=== PATIENT | male | born 1990 | race African-American/Black ===

== ENCOUNTER 2017-01-26 23:18 | Emergency (ER) | payer MEDICAID ==
[~2017-01-26] VITALS: Ht 172.7 cm; Wt 77.1 kg
[2017-01-26 23:27] VITALS: BP_SYST 134
[2017-01-27 01:19] LABS: BASOPHILS # (AUTO) 0.1 K/uL (0.0-0.2); BASOPHILS % (AUTO) 0.5 % (0.0-2.0); EOSINOPHILS # (AUTO) 0.1 K/uL (0.0-0.4); EOSINOPHILS % (AUTO) 1.2 % (0.0-4.0); HEMATOCRIT 45.6 % (36-54); LYMPHOCYTES # (AUTO) 3.4 K/uL (1.0-5.5); LYMPHOCYTES % (AUTO) 31.9 % (20.5-51.5); MEAN CORPUSCULAR HEMOGLOBIN 29 pg (27-31); MEAN CORPUSCULAR HGB CONC 33 % (32-36); MEAN CORPUSCULAR VOLUME 88 fL (79.0-98.0); MONOCYTES # (AUTO) 0.8 K/uL (0.0-1.0); MONOCYTES % (AUTO) 7.2 % (1.7-9.3); NEUTROPHILS # (AUTO) 6.3 K/uL (1.8-7.7); NEUTROPHILS % (AUTO) 59.2 % (40.0-70.0); PLATELET COUNT (AUTO) 292 K/uL (130-430); RED BLOOD CELL COUNT(AUTO) 5.21 MIL/uL (4.2-6.2); RED CELL DISTRIBUTION WIDTH 13.3 % (9.0-15.0); WHITE BLOOD COUNT (AUTO) 10.7 K/uL (4.8-10.8)
[2017-01-27 01:23] LABS: CREATININE 0.88 mg/dL (0.55-1.30); POTASSIUM 3.1 mmol/L (3.5-5.1)
[2017-01-27 01:29] LABS: TOTAL BILIRUBIN 0.8 mg/dL (0.0-1.0); TOTAL PROTEIN, SERUM 7.4 g/dL (6.4-8.3)
[2017-01-27 01:50] VITALS: BP_SYST 132
== END 2017-01-27 01:50 | disposition home or self-care (01) ==
LOC: SED 23:18
DX: R42 Dizziness and giddiness (principal); F17.200 Nicotine dependence, unspecified, uncomplicated; Z71.6 Tobacco abuse counseling
CPT/HCPCS: 36415; 80053; 85025; 99284

== ENCOUNTER 2017-10-27 23:05 | Emergency (ER) | payer MEDICAID ==
[~2017-10-27] VITALS: Ht 175.3 cm; Wt 79.4 kg
[2017-10-27 23:17] VITALS: BP_SYST 136
[2017-10-28 00:25] VITALS: BP_SYST 128
== END 2017-10-28 00:25 | disposition home or self-care (01) ==
LOC: SED 23:05
DX: M25.561 Pain in right knee (principal); R51 Headache; V43.52XA Car driver injured in collision with other type car in traffic accident, initial encounter; Y93.89 Activity, other specified; Y92.410 Unspecified street and highway as the place of occurrence of the external cause; Y99.8 Other external cause status
CPT/HCPCS: 99282

== ENCOUNTER 2018-09-14 20:24 | Emergency (ER) | payer MEDICAID ==
[~2018-09-14] VITALS: Ht 172.7 cm; Wt 78.0 kg
[2018-09-14 21:02] VITALS: BP_SYST 118
[2018-09-14] MEDS ORDERED: DIPH-TET-PERTUS Vaccine 0.5 ML VIAL (ADACEL) I.M. ONE (21:45)
[2018-09-14] MEDS ORDERED: AMOXICILLIN 500 MG CAPSULE PO ONE (21:45)
[2018-09-14] MEDS ORDERED: HYDROcodone/ACETAMIN 10-325 MG TAB PO ONE (21:45)
[2018-09-14 22:28] VITALS: BP_SYST 120
== END 2018-09-14 22:28 | disposition home or self-care (01) ==
LOC: SED 20:24
DX: S71.132A Puncture wound without foreign body, left thigh, initial encounter (principal); W54.0XXA Bitten by dog, initial encounter; Y93.89 Activity, other specified; Y92.89 Other specified places as the place of occurrence of the external cause; Y99.8 Other external cause status
CPT/HCPCS: 73552; 90715; 99283

== ENCOUNTER 2018-11-09 08:38 | Emergency (ER) | payer MEDICAID ==
[~2018-11-09] VITALS: Ht 172.7 cm; Wt 79.4 kg
[2018-11-09 09:01] VITALS: BP_SYST 140
--- NOTE | 2018-11-09 09:07 | NUR ---
Patient to ER bed 7 to gown for evaluation. Side rails up. Report given to Rhonda BRIGGS.
--- NOTE | 2018-11-09 09:10 | NUR ---
Patient presented to ER with c/o cough and fever. patient A&O, ambulatory, cough present, respirations equal bilat, afebrile, skin pink. Patient states cough and fever started . Patient stated he made an appointment with PMD for in 2 weeks, was soonest. Patient states he has fearhe might have Typhoid fever.
--- NOTE | 2018-11-09 09:20 | NUR ---
Radiology staff at bedside for x-ray
--- NOTE | 2018-11-09 09:23 | NUR ---
ER Dr. Wahl at bedside examining patient.
[2018-11-09] MEDS ORDERED: IPRATROPIUM BROM 0.5 MG/2.5 ML VIAL.NEB (ATROVENT) IH ONE (09:30)
[2018-11-09] MEDS ORDERED: methylPREDNISolone SOD SUCC/PF 62.5 MG/ML VIAL IVP ONE (09:30)
[2018-11-09] MEDS ORDERED: ALBUTEROL SULFATE 0.083% 2.5 MG/3 ML VIAL.NEB IH ONE (09:30)
--- NOTE | 2018-11-09 09:55 | NUR ---
Patient requested breakfast, notified Dr. Merino. Okay per dr. merino to give PO. Gave patient "to go tray"
[2018-11-09 09:57] LABS: BASOPHILS # (AUTO) 0.1 K/uL (0.0-0.2); BASOPHILS % (AUTO) 0.5 % (0.0-2.0); EOSINOPHILS # (AUTO) 0.2 K/uL (0.0-0.4); EOSINOPHILS % (AUTO) 2.2 % (0.0-4.0); HEMATOCRIT 48.2 % (36-54); HEMOGLOBIN 15.9 g/dL (14.0-18.0); LYMPHOCYTES # (AUTO) 3.3 K/uL (1.0-5.5); LYMPHOCYTES % (AUTO) 29.1 % (20.5-51.5); MEAN CORPUSCULAR HEMOGLOBIN 30 pg (27-31); MEAN CORPUSCULAR HGB CONC 33 % (32-36); MEAN CORPUSCULAR VOLUME 90 fL (79.0-98.0); MONOCYTES # (AUTO) 0.9 K/uL (0.0-1.0); MONOCYTES % (AUTO) 8.4 % (1.7-9.3); NEUTROPHILS # (AUTO) 6.7 K/uL (1.8-7.7); NEUTROPHILS % (AUTO) 59.8 % (40.0-70.0); PLATELET COUNT (AUTO) 267 K/uL (130-430); RED BLOOD CELL COUNT(AUTO) 5.37 MIL/uL (4.2-6.2); RED CELL DISTRIBUTION WIDTH 13.7 % (9.0-15.0); WHITE BLOOD COUNT (AUTO) 11.2 K/uL (4.8-10.8)
[2018-11-09 10:14] LABS: CALCIUM 9.4 mg/dL (8.4-11.0); CREATININE 0.7 mg/dL (0.55-1.30); POTASSIUM 3.6 mmol/L (3.5-5.1)
[2018-11-09 10:19] LABS: ALBUMIN 4.1 g/dL (3.4-4.8); TOTAL BILIRUBIN 0.6 mg/dL (0.0-1.0)
[2018-11-09 10:35] VITALS: BP_SYST 140
--- NOTE | 2018-11-09 10:35 | NUR ---
Patient given written and verbal discharge instructions and verbalizes understanding. ER MD discussed with patient the results and treatment provided. Patient in stable condition. ID arm band removed. IV catheter removed intact and dressing applied, no active bleeding. Rx of Zithromax, robitussin, and chloroseptic given. Patient educated on pain management and to follow up with PMD. Pain Scale 7/10 tolerable for patient. Opportunity for questions provided and answered. Medication side effect fact sheet provided.
== END 2018-11-09 10:35 | disposition home or self-care (01) ==
LOC: SED 08:38
DX: J40 Bronchitis, not specified as acute or chronic (principal); R05 Cough; F17.210 Nicotine dependence, cigarettes, uncomplicated; Z71.6 Tobacco abuse counseling
CPT/HCPCS: 36415; 71045; 80053; 85025; 86403; 87081; 94640; 96374; 99284; J2930; J7613

== ENCOUNTER 2018-12-01 05:30 | Emergency (ER) | payer MEDICAID ==
[~2018-12-01] VITALS: Ht 172.7 cm; Wt 87.1 kg
[2018-12-01 05:35] VITALS: BP_SYST 136
[2018-12-01] MEDS ORDERED: POLYMYXIN B/TRIMETHOPRIM EYE DROPS 10 mL OP ONE (06:30)
[2018-12-01 07:10] VITALS: BP_SYST 136
== END 2018-12-01 07:10 | disposition home or self-care (01) ==
LOC: SED 05:30
DX: H10.89 Other conjunctivitis (principal); B96.89 Other specified bacterial agents as the cause of diseases classified elsewhere
CPT/HCPCS: 99283

== ENCOUNTER 2019-02-18 10:14 | Emergency (ER) | payer MEDICAID ==
[~2019-02-18] VITALS: Ht 172.7 cm; Wt 79.4 kg
[2019-02-18 10:21] VITALS: BP_SYST 131
--- NOTE | 2019-02-18 10:26 | NUR ---
Patient is awake, alert, and oriented. Patient is complaining of nausea, vomiting, and diarrhea x2 weeks. Patient denies pain at this time and believes it may be stress related. He came in today becuase his mother is worried it may be virus related.
--- NOTE | 2019-02-18 10:26 | NUR ---
Patient to ER bed 4 to gown for evaluation. Side rails up. Report given to Juan BRIGGS.
--- NOTE | 2019-02-18 10:40 | NUR ---
ER Dr. Morton at bedside examining patient.
[2019-02-18] MEDS ORDERED: ONDANSETRON 4 MG ODT TAB PO ONE (11:00)
[2019-02-18 11:16] LABS: BASOPHILS % (AUTO) 0.4 % (0.0-2.0); EOSINOPHILS # (AUTO) 0.1 K/uL (0.0-0.4); EOSINOPHILS % (AUTO) 0.9 % (0.0-4.0); HEMATOCRIT 45.9 % (36-54); HEMOGLOBIN 15.6 g/dL (14.0-18.0); LYMPHOCYTES # (AUTO) 3.2 K/uL (1.0-5.5); MEAN CORPUSCULAR HEMOGLOBIN 31 pg (27-31); MEAN CORPUSCULAR HGB CONC 34 % (32-36); MEAN CORPUSCULAR VOLUME 90 fL (79.0-98.0); MONOCYTES # (AUTO) 0.5 K/uL (0.0-1.0); MONOCYTES % (AUTO) 6.2 % (1.7-9.3); NEUTROPHILS # (AUTO) 4.8 K/uL (1.8-7.7); NEUTROPHILS % (AUTO) 55.5 % (40.0-70.0); PLATELET COUNT (AUTO) 247 K/uL (130-430); RED BLOOD CELL COUNT(AUTO) 5.12 MIL/uL (4.2-6.2); RED CELL DISTRIBUTION WIDTH 13.5 % (9.0-15.0); WHITE BLOOD COUNT (AUTO) 8.7 K/uL (4.8-10.8)
[2019-02-18 11:42] LABS: CALCIUM 9.3 mg/dL (8.4-11.0); CREATININE 0.79 mg/dL (0.55-1.30); POTASSIUM 3.7 mmol/L (3.5-5.1)
[2019-02-18 11:47] LABS: ALBUMIN 4.4 g/dL (3.4-4.8); TOTAL BILIRUBIN 0.8 mg/dL (0.0-1.0)
[2019-02-18 12:06] VITALS: BP_SYST 128
--- NOTE | 2019-02-18 12:06 | NUR ---
Patient given written and verbal discharge instructions and verbalizes understanding. ER MD discussed with patient the results and treatment provided. Patient in stable condition. ID arm band removed. Rx of ativan, zofran ODT given. Patient educated on pain management and to follow up with PMD. Pain Scale 0/10. Opportunity for questions provided and answered. Medication side effect fact sheet provided.
== END 2019-02-18 12:06 | disposition home or self-care (01) ==
LOC: SED 10:14
DX: R11.2 Nausea with vomiting, unspecified (principal); F41.9 Anxiety disorder, unspecified; F17.210 Nicotine dependence, cigarettes, uncomplicated; Z71.6 Tobacco abuse counseling
CPT/HCPCS: 36415; 80053; 83690; 85025; 99283; Q0162

== ENCOUNTER 2019-04-25 18:14 | Emergency (ER) | payer MEDICAID ==
[~2019-04-25] VITALS: Ht 172.7 cm; Wt 79.4 kg
[2019-04-25 18:50] VITALS: BP_SYST 127
[2019-04-25] MEDS ORDERED: DEXAMETHASONE SOD PHOSPHATE 10 MG/ML VIAL IM ONE (20:00)
[2019-04-25] MEDS ORDERED: MAG HYDROX/AL HYDROX/SIMETH 30 ML, DICYCLOMINE HCL 20 MG, LIDOCAINE VISCOUS 2% 15ML (PO... PO ONE ×3 (20:00)
[2019-04-25 20:27] VITALS: BP_SYST 118
== END 2019-04-25 20:28 | disposition home or self-care (01) ==
LOC: SED 18:14
DX: J02.9 Acute pharyngitis, unspecified (principal); R10.13 Epigastric pain
CPT/HCPCS: 96372; 99283; J1100; J2001

== ENCOUNTER 2019-06-11 07:41 | Emergency (ER) | payer MEDICAID ==
[~2019-06-11] VITALS: Ht 172.7 cm; Wt 79.4 kg
[2019-06-11 07:41] VITALS: BP_SYST 126
[2019-06-11] MEDS ORDERED: NACL 0.9% 1,000 ML IV ONE ×2 (08:11→08:15)
[2019-06-11] MEDS ORDERED: MORPHINE 2 MG/ML INJ. SYRINGE IVP ONE (08:15)
[2019-06-11 08:46] LABS: BASOPHILS % (AUTO) 0.6 % (0.0-2.0); EOSINOPHILS # (AUTO) 0.1 K/uL (0.0-0.4); EOSINOPHILS % (AUTO) 2.4 % (0.0-4.0); HEMATOCRIT 47.6 % (36-54); HEMOGLOBIN 16.6 g/dL (14.0-18.0); LYMPHOCYTES # (AUTO) 2.4 K/uL (1.0-5.5); LYMPHOCYTES % (AUTO) 40.5 % (20.5-51.5); MEAN CORPUSCULAR HEMOGLOBIN 31 pg (27-31); MEAN CORPUSCULAR HGB CONC 35 % (32-36); MEAN CORPUSCULAR VOLUME 89 fL (79.0-98.0); MONOCYTES # (AUTO) 0.7 K/uL (0.0-1.0); MONOCYTES % (AUTO) 11.7 % (1.7-9.3); NEUTROPHILS # (AUTO) 2.6 K/uL (1.8-7.7); NEUTROPHILS % (AUTO) 44.8 % (40.0-70.0); PLATELET COUNT (AUTO) 236 K/uL (130-430); RED BLOOD CELL COUNT(AUTO) 5.34 MIL/uL (4.2-6.2); RED CELL DISTRIBUTION WIDTH 13.7 % (9.0-15.0); WHITE BLOOD COUNT (AUTO) 5.9 K/uL (4.8-10.8)
[2019-06-11 08:56] LABS: CALCIUM 8.7 mg/dL (8.4-11.0); CREATININE 0.86 mg/dL (0.55-1.30)
[2019-06-11 09:02] LABS: TOTAL BILIRUBIN 0.5 mg/dL (0.0-1.0)
[2019-06-11] MEDS ORDERED: ONDANSETRON HCL 4 MG/2 ML VIAL IVP ONE (09:15)
[2019-06-11 12:10] VITALS: BP_SYST 126
== END 2019-06-11 12:10 | disposition home or self-care (01) ==
LOC: SED 07:41
DX: K52.9 Noninfective gastroenteritis and colitis, unspecified (principal); J45.909 Unspecified asthma, uncomplicated
CPT/HCPCS: 36415; 80053; 82150; 83605; 83690; 85025; 87040; 96361; 96374; 99283; J7030; J2270

== ENCOUNTER 2019-07-26 18:31 | Emergency (ER) | payer SELFPAY ==
[~2019-07-26] VITALS: Ht 175.3 cm; Wt 86.6 kg
[2019-07-26 18:53] VITALS: BP_SYST 141
== END 2019-07-26 23:25 | disposition left against medical advice (07) ==
LOC: SED 18:31
DX: R05 Cough (principal); R50.9 Fever, unspecified; R42 Dizziness and giddiness; Z53.21 Procedure and treatment not carried out due to patient leaving prior to being seen by health care provider
CPT/HCPCS: 36415; 86710; 99281

== ENCOUNTER 2019-09-02 17:36 | Emergency (ER) | payer MEDICAID ==
[~2019-09-02] VITALS: Ht 170.2 cm; Wt 81.6 kg
[2019-09-02 17:51] VITALS: BP_SYST 147
[2019-09-02 18:15] VITALS: BP_SYST 147
== END 2019-09-02 18:17 | disposition home or self-care (01) ==
LOC: SED 17:36
DX: K52.9 Noninfective gastroenteritis and colitis, unspecified (principal); F17.210 Nicotine dependence, cigarettes, uncomplicated; R03.0 Elevated blood-pressure reading, without diagnosis of hypertension
CPT/HCPCS: 99283

== ENCOUNTER 2020-12-30 07:53 | Emergency (ER) | payer MEDICAID ==
[~2020-12-30] VITALS: Ht 172.7 cm; Wt 78.0 kg
[2020-12-30 07:53] VITALS: BP_SYST 126
[2020-12-30 08:53] LABS: BASOPHILS # (AUTO) 0.2 K/uL (0.0-0.2); BASOPHILS % (AUTO) 1.9 % (0.0-2.0); EOSINOPHILS # (AUTO) 0.2 K/uL (0.0-0.4); EOSINOPHILS % (AUTO) 2.4 % (0.0-4.0); HEMATOCRIT 47.4 % (36-54); HEMOGLOBIN 16.2 g/dL (14.0-18.0); LYMPHOCYTES # (AUTO) 1.8 K/uL (1.0-5.5); LYMPHOCYTES % (AUTO) 18.2 % (20.5-51.5); MEAN CORPUSCULAR HEMOGLOBIN 31 pg (27-31); MEAN CORPUSCULAR HGB CONC 34 % (32-36); MEAN CORPUSCULAR VOLUME 90 fL (79.0-98.0); MONOCYTES # (AUTO) 0.8 K/uL (0.0-1.0); MONOCYTES % (AUTO) 8.3 % (1.7-9.3); NEUTROPHILS # (AUTO) 6.7 K/uL (1.8-7.7); NEUTROPHILS % (AUTO) 69.2 % (40.0-70.0); PLATELET COUNT (AUTO) 250 K/uL (130-430); RED BLOOD CELL COUNT(AUTO) 5.28 MIL/uL (4.2-6.2); WHITE BLOOD COUNT (AUTO) 9.7 K/uL (4.8-10.8)
[2020-12-30 08:55] LABS: BILIRUBIN,URINE NEGATIVE (NEGATIVE); BLOOD, URINE 1+ (NEGATIVE); CLARITY/URINE CLEAR (CLEAR); COLOR,URINE YELLOW (YELLOW); GLUCOSE,URINE NEGATIVE (NEGATIVE); KETONES,URINE NEGATIVE (NEGATIVE); LEUKOCYTE ESTERASE ,URINE NEGATIVE (NEGATIVE); NITRITE, URINE NEGATIVE (NEGATIVE); PH,URINE 5.5 (5.0-8.0); PROTEIN URINE NEGATIVE (NEGATIVE); UROBILINOGEN,URINE 0.2 (0.2-1.0)
[2020-12-30 09:07] LABS: CALCIUM 8.7 mg/dL (8.4-11.0); CREATININE 0.74 mg/dL (0.55-1.30); POTASSIUM 3.9 mmol/L (3.5-5.1)
[2020-12-30 09:19] LABS: ALBUMIN 3.7 g/dL (3.4-4.8); TOTAL BILIRUBIN 0.5 mg/dL (0.0-1.0)
[2020-12-30 09:53] LABS: BACTERIA,URINE FEW /HPF (None Seen); WBC,URINE 0-3 /HPF (0-3)
[2020-12-30 11:05] VITALS: BP_SYST 126
== END 2020-12-30 11:05 | disposition home or self-care (01) ==
LOC: SED 07:53
DX: R14.0 Abdominal distension (gaseous) (principal); R19.7 Diarrhea, unspecified; F15.90 Other stimulant use, unspecified, uncomplicated; Z79.899 Other long term (current) drug therapy
CPT/HCPCS: 36415; 80053; 81000; 82272; 85025; 89055; 99283

== ENCOUNTER 2021-09-26 19:19 | Emergency (ER) | payer MEDICAID ==
[~2021-09-26] VITALS: Ht 172.7 cm; Wt 81.6 kg
[2021-09-26 19:26] VITALS: BP_SYST 147
--- NOTE | 2021-09-26 23:10 | NUR ---
Called patient x 3, no answer. Patient left without being seen. No further treatment provided. ER MD aware
== END 2021-09-26 23:10 | disposition left against medical advice (07) ==
LOC: SED 19:19
DX: R51.9 Headache, unspecified (principal); Z53.21 Procedure and treatment not carried out due to patient leaving prior to being seen by health care provider

== ENCOUNTER 2021-12-21 20:49 | Emergency (ER) | payer MEDICAID ==
[~2021-12-21] VITALS: Ht 172.7 cm; Wt 81.6 kg
[2021-12-21 21:08] VITALS: BP_SYST 138
--- NOTE | 2021-12-21 22:15 | NUR ---
[facility]. Report given to CHESTER Schmidt
--- NOTE | 2021-12-21 22:41 | NUR ---
Pt to hallway bed w/ c/o "pain and swelling" to right shoulder w/ small swollen area to right neck, as well. Pt also states right eye pain but denies blurry vision. Pt ambulates with strong steady gait. Normal skin color for ethnicity. Respirations even and unlabored. Denies fever/body aches/ chills.
[2021-12-21] MEDS ORDERED: LIDOCAINE 1% 10 MG/ML, 20 ML MDV INJ ONE (23:00)
--- NOTE | 2021-12-21 23:05 | NUR ---
Equipment set up at pt bedside for I&D by .
--- NOTE | 2021-12-21 23:22 | NUR ---
at bedside at this time to perform I&D.
[2021-12-21] MEDS ORDERED: IBUP-1971 PO (23:56)
[2021-12-21] MEDS ORDERED: CLIN-142 PO (23:56)
[2021-12-22] MEDS ORDERED: HYDROcodone/ACETAMIN 5-325 MG TAB (NORCO/ VICODIN) PO ONE
--- NOTE | 2021-12-22 00:12 | NUR ---
Patient given written and verbal discharge instructions and verbalizes understanding. ER MD discussed with patient the results and treatment provided. Patient in stable condition. ID arm band removed. Rx of clindamycin and ibuprofen given. Patient educated on pain management and to follow up with PMD. Pain Scale 7/10/. Opportunity for questions provided and answered. Medication side effect fact sheet provided.
[2021-12-22 00:15] VITALS: BP_SYST 128
== END 2021-12-22 00:15 | disposition home or self-care (01) ==
LOC: SED 20:49
DX: L03.113 Cellulitis of right upper limb (principal); Z79.899 Other long term (current) drug therapy
CPT/HCPCS: 99283; 10060; J2001

== ENCOUNTER 2022-01-10 20:09 | Emergency (ER) | payer MEDICAID ==
[~2022-01-10] VITALS: Ht 172.7 cm; Wt 81.2 kg
[~2022-01-10 20:09] MED LIST: CLIN-142 PO; IBUP-1971 PO
[2022-01-10 20:26] VITALS: BP_SYST 115
[2022-01-10] MEDS ORDERED: CLOT15CR5 TP (21:21)
[2022-01-10 22:05] VITALS: BP_SYST 120
== END 2022-01-10 22:05 | disposition home or self-care (01) ==
LOC: SED 20:09
DX: B35.4 Tinea corporis (principal); R21 Rash and other nonspecific skin eruption; Z79.899 Other long term (current) drug therapy
CPT/HCPCS: 99283

== ENCOUNTER 2023-12-24 08:39 | Emergency (ER) | payer MEDICAID ==
[~2023-12-24] VITALS: Ht 172.7 cm; Wt 80.7 kg
[~2023-12-24 08:39] MED LIST changes: +CLOT15CR5 TP
[2023-12-24] MEDS ORDERED: BACITRACIN 1 GM OINT TP ONE (09:00)
[2023-12-24 09:01] VITALS: BP_SYST 116; PULSE 72; RESP 17; TEMP 97; O2SAT 98
[2023-12-24 09:38] VITALS: BP_SYST 116; PULSE 72; RESP 17; TEMP 97; O2SAT 98
== END 2023-12-24 09:38 | disposition home or self-care (01) ==
LOC: SED 08:39
DX: S51.812D Laceration without foreign body of left forearm, subsequent encounter (principal); Z48.02 Encounter for removal of sutures; Z79.899 Other long term (current) drug therapy; Z79.2 Long term (current) use of antibiotics; X58.XXXD Exposure to other specified factors, subsequent encounter
CPT/HCPCS: 99282